=== PATIENT | female | born 1985 | race Caucasian/White ===

== ENCOUNTER 2017-09-30 02:37 | Emergency (ER) | payer MEDICAID, OTHER ==
[~2017-09-30] VITALS: Ht 162.6 cm; Wt 118.0 kg
[2017-09-30] MEDS ORDERED: IBUPROFEN 800MG TABLET PO ONE (07:30)
[2017-09-30 07:40] VITALS: BP 104/64
== END 2017-09-30 08:18 | disposition home or self-care (01) ==
LOC: ER 02:37
DX: M79.601 Pain in right arm (principal); E11.9 Type 2 diabetes mellitus without complications; Z98.890 Other specified postprocedural states
CPT/HCPCS: 99282; Z7610